=== PATIENT | female | born 2000 | race Caucasian/White ===

== ENCOUNTER 2024-06-02 08:50 | Inpatient (IN) | payer BC, OTHER ==
[2024-06-02 09:09] LABS: HEMOGLOBIN 12.6 g/dL (12.0-18.0); MCH 30.7 (27-36); MCHC 34.1 g/dl (30-36); MCV 89.8 fl (81-99); RBC 4.12 M/ul (4.3-5.7); RDW 14.8 (10.5-15.0)
[2024-06-02 09:25] LABS: ALBUMIN 2.6 g/dL (3.4-5.0); ALBUMIN/GLOBULIN RATIO 0.62 (1.1-2.4); ANION GAP 17.8 (7-21); BILIRUBIN, TOTAL 0.2 ng/dL (0.2-1.0); BUN/CREATININE RATIO 13.33 (6.0-28.6); CALCIUM 8.5 mg/dL (8.5-10.1); CREATININE, SERUM 0.6 mg/dL (0.55-1.02); POTASSIUM 3.8 mmol/L (3.5-5.1); PROTEIN, TOTAL 6.8 g/dL (6.4-8.2)
[2024-06-02 09:50] LABS: PROTEIN, RANDOM URINE <6 mg/dL (NOT ESTABLISHED)
[2024-06-02] MEDS ORDERED: LACTATED RINGER'S 1,000 ML IV SCH (10:00)
[2024-06-02] MEDS ORDERED: CALCIUM CARBONATE 500 MG CHEW PO PRN ×2 (10:00→23:45)
[2024-06-02] MEDS ORDERED: MAGNESIUM HYDROXIDE/AL HYDROX 30 ML CUP PO PRN ×2 (10:00→23:45)
[2024-06-02] MEDS ORDERED: OXYTOCIN/DEXTROSE 5% 20 UNITS/100 ML BAG IV SCH (10:00)
[2024-06-02 10:24] LABS: AMPHETAMINES, URINE NEGATIVE (NEGATIVE); BARBITURATES, URINE NEGATIVE (NEGATIVE); BENZODIAZEPINE, URINE NEGATIVE (NEGATIVE); BUPRENORPHINE, URINE NEGATIVE (NEGATIVE); CANNABINOID, URINE NEGATIVE (NEGATIVE); COCAINE, URINE NEGATIVE (NEGATIVE); ECSTASY, URINE NEGATIVE (NEGATIVE); FENTANYL, URINE NEGATIVE (NEGATIVE); METHADONE, URINE NEGATIVE (NEGATIVE); OPIATES, URINE NEGATIVE (NEGATIVE); OXYCODONE, URINE NEGATIVE (NEGATIVE); PHENCYCLIDINE, URINE NEGATIVE (NEGATIVE)
[2024-06-02 10:29] LABS: CREATININE, RANDOM URINE 6.83 mg/dL (NOT ESTABLISHED)
[2024-06-02 10:31] LABS: ABO O; ANTIBODY SCREEN NEGATIVE; RH POSITIVE
[2024-06-02 11:21] VITALS: BP 135/83
[2024-06-02] MEDS ORDERED: miSOPROStoL 25 MCG TAB PV SCH (12:30)
[2024-06-02] MEDS ORDERED: CEFAZOLIN SODIUM 2 GM/20 ML SYR IV ONE (17:00)
[2024-06-02] MEDS ORDERED: ROPIVACAINE 0.2% 200 ML BAG ONE (18:45)
[2024-06-02] MEDS ORDERED: fentaNYL citrate 100 MCG/2 ML VIAL ONE (18:45)
--- NOTE | 2024-06-02 18:47 | PR ---
[facility] [address] [place], [place] [address] Signed Progress Notes IP Datetime Report Generated by CPN: 06/02/2024 18:47 PROGRESS NOTES: [id number] Impression: Normal Progression of Labor; Reassuring Heart Rate Procedures: Epidural Placement Plan: Anesthesia Consult VITAL SIGNS: [id number] Vital Signs: Reviewed VS Notable Details: Sustained elevated BPs, no severe EXAM: [id number] Dilatation: 3.0 Effacement: 75 Station: -3 Contractions: q 2 minutes MEMBRANES: [id number] Membranes Status: Bulging Comments: Pt seen and evaluated. Doing well but uncomfortable w/ contractions. Nitrous helping but pt requesting epidural. On exam, pt 7/80/-2 w/ large bulging bag of olsen. Additional anesthesia requested as anesthesia is currently in another case. Reviewed plan of care and all questions answered. FETUS A: [id number] FHR Baseline: 145 Variability: Moderate 6-25bpm Decelerations: None FHR Category: Category I Presentation: Vertex Comments on Fetus A: No evidence of metabolic acidosis FETUS B: [id number] Signing Physician: Vale Saldana DO Copies: ~ *Electronically Signed* 06/02/24 184 VALE SALDANA (MARA) DO PATIENT NAME: ELISHA ALEMAN PROGRESS NOTE DATE OF : 98 PHYSICIAN: VALE SALDANA (JD) DO RPT #: [id number] REPORT IS CONFIDENTIAL AND NOT TO BE RELEASED WITHOUT AUTHORIZATION
[2024-06-02] MEDS ORDERED: LACTATED RINGER'S 2,000 ML IV ONE (19:30)
[2024-06-02] MEDS ORDERED: ROPIVACAINE 0.2% 200 ML BAG EPIDURAL SCH (19:30)
[2024-06-02] MEDS ORDERED: LACTATED RINGER'S 500 ML IV PRN (19:30)
[2024-06-02] MEDS ORDERED: ePHEDrine sulfate 5 MG/ML SYRINGE IV PRN (19:30)
--- NOTE | 2024-06-02 21:44 | PR ---
[facility] [address] [place], [place] [address] Signed Progress Notes IP Datetime Report Generated by CPN: 06/02/2024 21:44 PROGRESS NOTES: [id number] Impression: Normal Progression of Labor; Reassuring Heart Rate Procedures: Epidural Placement Plan: Continue Present Management; Anticipate Vaginal Delivery VITAL SIGNS: [id number] Vital Signs: Reviewed VS Notable Details: Sustained elevated BPs, no severe EXAM: [id number] Dilatation: 9.0 Effacement: 95 Station: -2 Contractions: q 2-3 per pt and palpation MEMBRANES: [id number] Membranes Status: Bulging Comments: Pt seen and examined. Doing well. Comfortable w/ epidural. No complaints. BPs stable w/ no severe range BPs noted. No YOO, RUQ pain, or visual changes. SROM for clear fluid. Anticipate . Reviewed plan of care. All questions answered FETUS A: [id number] FHR Baseline: 145 Variability: Moderate 6-25bpm Decelerations: Variable FHR Category: Category II Presentation: Vertex Comments on Fetus A: No evidence of metabolic acidosis FETUS B: [id number] Signing Physician: Vale Rodriguez DO Copies: ~ *Electronically Signed* 06/02/24 2149 VALE RODRIGUEZ (MARA) DO PATIENT NAME: ELISHA ALEMAN PROGRESS NOTE DATE OF : 98 PHYSICIAN: VALE RODRIGUEZ (JD) DO RPT #: [id number] REPORT IS CONFIDENTIAL AND NOT TO BE RELEASED WITHOUT AUTHORIZATION
[2024-06-02] MEDS ORDERED: BENZOCAINE 60 ML AEROSOL TOP PRN (23:45)
[2024-06-02] MEDS ORDERED: IBUPROFEN 600 MG TAB PO PRN (23:45)
[2024-06-02] MEDS ORDERED: OXYCODONE/APAP 5/325 TAB PO PRN (23:45)
[2024-06-02] MEDS ORDERED: HYDROCORTISONE ACETATE 25 MG SUPP PR PRN (23:45)
[2024-06-02] MEDS ORDERED: OXYTOCIN/0.9 % SODIUM CHLORIDE 500 ML IV SCH (23:45)
[2024-06-02] MEDS ORDERED: MAGNESIUM HYDROXIDE 30 ML UDC PO PRN (23:45)
[2024-06-02] MEDS ORDERED: WITCH HAZEL/GLYCERIN 1 EA PAD TOP PRN (23:45)
[2024-06-02] MEDS ORDERED: ACETAMINOPHEN 325 MG TAB PO PRN (23:45)
[2024-06-02] MEDS ORDERED: OXYCODONE HCL 5 MG TAB PO PRN (23:45)
[2024-06-02] MEDS ORDERED: HYDROCODONE/ACETA 5/325 TAB PO PRN (23:45)
[2024-06-03 05:32] LABS: HEMATOCRIT 34.3 % (35.0-50.0); HEMOGLOBIN 11.5 g/dL (12.0-18.0); MCHC 33.4 g/dl (30-36); MCV 89.8 fl (81-99); RBC 3.82 M/ul (4.3-5.7); RDW 14.9 (10.5-15.0)
[2024-06-03] MEDS ORDERED: SENNOSIDES/DOCUSATE 1 EA TAB PO SCH (09:00)
--- NOTE | 2024-06-03 17:45 | PR ---
[facility] [address] [facility] [place], [place] [address] Signed PP Progress Notes Datetime Report Generated by CPN: 06/03/2024 17:45 SUBJECTIVE: [id number] Pain: Within Normal Limits Nausea/Vomiting: Denies Flatus: Yes Bowel Movement: No Vital Signs: [id number] Notable Details: Improved BPs Cardiovascular: Normal Respiratory: Normal Abdomen/Uterus: Normal Lochia: Normal Vulva/Perineum: Not Done Breasts: Not Done CVA Tenderness: Normal Extremities: Normal Incision: Not Applicable Progress: Normal Exam Comments: Fundus firm U-2 nontender IMPRESSION/PLAN/PROCEDURES: [id number] Impression: Normal Progression Plan: Continue Present Management Progress Notes: Pt seen and examined. Doing well. Ambulating, voiding, and tolerating full diet. Pain and lochia minimal. well. BPs much improved and antihypertensive therapy not indicated at this point. Reviewed anticipated course. Pt expresses gratitude about experience and states "I really felt heard and valued." Anticipate d/c home tomorrow Signing Physician: Vale Rodriguez DO Copies: ~ *Electronically Signed* 06/03/24 4234 VALE RODRIGUEZ (MARA) DO PATIENT NAME: ELISHA ALEMAN PROGRESS NOTE DATE OF : 98 PHYSICIAN: VALE RODRIGUEZ (JD) DO RPT #: [id number] REPORT IS CONFIDENTIAL AND NOT TO BE RELEASED WITHOUT AUTHORIZATION
== END 2024-06-04 12:00 | disposition home or self-care (01) | DRG 807 ==
LOC: FBCO 08:50 → FBC 09:35
PROVIDERS: ADMIT Obstetrics & Gynecology; ATTEND Obstetrics & Gynecology
PROC: 10E0XZZ Delivery of Products of Conception, External Approach (ICD-10-PCS; principal; 2024-06-02)
PROC: 0KQM0ZZ Repair Perineum Muscle, Open Approach (ICD-10-PCS; 2024-06-02)
PROC: 00HU33Z Insertion of Infusion Device into Spinal Canal, Percutaneous Approach (ICD-10-PCS; 2024-06-02)
PROC: 3E0R3BZ Introduction of Anesthetic Agent into Spinal Canal, Percutaneous Approach (ICD-10-PCS; 2024-06-02)
DX: O14.94 Unspecified pre-eclampsia, complicating childbirth (principal); Z37.0 Single live birth; Z3A.39 39 weeks gestation of pregnancy; O70.1 Second degree perineal laceration during delivery; O99.824 Streptococcus B carrier state complicating childbirth; Z88.1 Allergy status to other antibiotic agents; Z79.899 Other long term (current) drug therapy
CPT/HCPCS: 01960; 36415; 80053; 80307; 82565; 82570; 83615; 84156; 84550; 85027; 86850; 86900; 86901; A9270; J0690; J2590; J2795; J3010; J7121